=== PATIENT | female | born 1990 | race Two or more races ===

== ENCOUNTER 2020-12-15 13:20 | Emergency (ER) | payer OTHER ==
[~2020-12-15] VITALS: Ht 162.6 cm; Wt 74.4 kg
[2020-12-15] MEDS ORDERED: PRENA1 TRUE CO1 EACH PO (13:32)
== END 2020-12-15 16:22 | disposition home or self-care (01) ==
LOC: ER 13:20
DX: O98.813 Other maternal infectious and parasitic diseases complicating pregnancy, third trimester (principal); B96.0 Mycoplasma pneumoniae [M. pneumoniae] as the cause of diseases classified elsewhere; O23.33 Infections of other parts of urinary tract in pregnancy, third trimester; Z3A.32 32 weeks gestation of pregnancy; Z20.822 Contact with and (suspected) exposure to COVID-19

== ENCOUNTER 2021-02-02 09:00 | Inpatient (IN) | payer OTHER ==
[~2021-02-02] VITALS: Ht 162.6 cm; Wt 76.2 kg
[~2021-02-02 09:00] MED LIST: PRENA1 TRUE CO1 EACH PO
== END 2021-02-05 16:53 | disposition home or self-care (01) | DRG 807 ==
LOC: SURG-SUITE 02-03 06:43 → LDR 02-03 06:43 → OB/GYN 02-03 06:43 → LDR 02-03 07:53 → OB/GYN 02-03 13:18 → SURG-SUITE 02-03 15:59 → LDR 02-06 09:00
PROVIDERS: ADMIT Obstetrics & Gynecology; ATTEND Obstetrics & Gynecology
PROC: 10E0XZZ Delivery of Products of Conception, External Approach (ICD-10-PCS; principal; 2021-02-03)
PROC: 4A1HXFZ Monitoring of Products of Conception, Cardiac Rhythm, External Approach (ICD-10-PCS; 2021-02-03)
DX: O70.0 First degree perineal laceration during delivery (principal); Z37.0 Single live birth; Z3A.39 39 weeks gestation of pregnancy